=== PATIENT | female | born 2000 | race Caucasian/White ===

== ENCOUNTER 2024-01-14 11:45 | Emergency (ER) | payer SELFPAY ==
[2024-01-14 12:38] VITALS: BP 121/71
--- NOTE | 2024-01-14 12:49 | ED.GENMED ---
History of Present Illness
<Rashi Steinberg MD - Last Filed: 01/14/24 12:50>
General
Chief Complaint: Abdominal Pain
Time Seen by Provider: 01/14/24 12:13
<Marnie Guillen PA-C - Last Filed: 01/14/24 18:05>
General
Source: patient
History of Present Illness
History of Present Illness:
23yo female currently 27 weeks gestation presenting with her friend for evaluation of abdominal pain. Patient is Chinese speaking and history is obtained with the assistance of a phone beauty specialist. Patient started to have left sided abdominal
pain earlier today. The pain was initially severe but has improved and is currently mild. She denies any contractions. She also reports intermittent dysuria, urinary frequency, and green vaginal discharge over the past month or so. She denies any
fevers, vomiting, vaginal bleeding. Patient has received all of her previous care in [facility]. She had an ultrasound at 15 weeks and she was reportedly told that the baby was 'low and slow moving.'
Phy Exam
<Marnie Guillen PA-C - Last Filed: 01/14/24 18:05>
General Physical Exam
General Presentation: well appearing and no apparent distress
General age: appears stated age
General Skin: warm and dry
General Habitus: normal
General Mental: alert
ENT Exam
ENT Exam: normocephalic
Pulmonary Exam
Pulmonary Exam: no respiratory distress
Gastrointestinal Exam
Gastrointestinal Exam: non tender, soft, non distended and other (Gravid abdomen. Abdomen soft, non-tender. FHR 144.)
Genitourinary Exam Female
Exam Female: vaginal discharge and other (Thick green vaginal discharged noted. Cervix otherwise appears normal and is closed. No CMT or adnexal tenderness.)
Neurological Exam
Neurological Exam: alert
D Lo Coma Scale
Eye Opening: Spontaneous
Verbal Response: Oriented
Motor Response: Obeys Commands
GCS Total Score: 15
Skin Exam
Skin Exam: normal color and warm/dry
Psychiatric Exam
Psychiatric Exam: normal mood/affect
Course
<Rashi Steinberg MD - Last Filed: 01/14/24 12:50>
Orders/Labs/Results
Orders:
Orders
01/14/24 12:15
Heart Tones ONCE
01/14/24 12:21
Urinalysis Reflex To Culture Urgent
Date Specimen was Collected: 01/14/24
Time Specimen was Collected: 12:17
Urine Microscopic Reflex Cult Urgent
Urine Culture Urgent
[facility] Source: U
Specimen Description:
Date Specimen was Collected: 01/14/24
Time Specimen was Collected: 12:17
01/14/24 12:35
2nd/3rd Trimester US [US 2nd/3rd Trimester] Urgent
Comment:
Reason For Exam: L sided abd pain
01/14/24 12:49
Complete Blood Count/With Diff Urgent
Comprehensive Metabolic Panel Urgent
01/14/24 13:11
Chlamydia/GC by PCR Urgent
[facility] Source: Endo-Cervical
Specimen Description:
Source:: CERVIX
Date Specimen was Collected: 01/14/24
Time Specimen was Collected: 12:53
Trichomonas - Wet Prep Urgent
[facility] Source: Vagina
Specimen Description:
Date Specimen was Collected: 01/14/24
Time Specimen was Collected: 12:53
01/14/24 13:56
Genital Culture Urgent
[facility] Source: Cervix
Specimen Description:
Date Specimen was Collected: 01/14/24
Time Specimen was Collected: 13:59
01/14/24 14:45
Add On- LAB Urgent
Tests Added?: HIV 4th gen.combo, HCV ab, Hepbsag, Rubella, RPR, ABO ab screen
Abnormal Lab Results
01/14/24 01/14/24
12:21 12:49
RBC 3.64 L 10^6/uL
(4.20-5.40)
Hgb 10.3 L g/dL
(12.0-16.0)
Hct 32.5 L %
(37.0-47.0)
MCHC 31.7 L g/dL
(33.0-37.0)
RDW 18.6 H %
(11.5-14.5)
MPV 10.7 H fL
(7.4-10.4)
Abs Immat Gran (auto) 0.1 H 10^3/uL
(0-0.05)
Absolute Monos (auto) 0.7 H 10^3/uL
(0.1-0.6)
Immature Gran % 0.6 H %
(0-0.5)
Lymphocytes % 17.0 L %
(20.5-51.1)
Carbon Dioxide 21 L mmol/L
(22-30)
Creatinine 0.3 L mg/dL
(0.6-1.0)
Total Protein 6.2 L g/dl
(6.3-8.2)
Leukocyte Esterase Rfl 1+ A
(Negative)
Urine Bacteria (Reflex) Few A
(Negative)
01/14/24 12:49
01/14/24 12:49
Vital Signs
Initial and Last Documented VS:
Initial Vital Signs
Temp Pulse Resp Pulse Ox
98.0 F 78 16 98
01/14/24 11:55 01/14/24 11:55 01/14/24 11:55 01/14/24 11:55
Last Documented Vital Signs
Temp Pulse Resp BP Pulse Ox
98.0 F 72 19 118/68 99
01/14/24 11:55 01/14/24 16:12 01/14/24 16:12 01/14/24 16:12 01/14/24 16:12
<Marnie Guillen PA-C - Last Filed: 01/14/24 18:05>
Orders/Labs/Results
Orders:
Orders
01/14/24 12:15
Heart Tones ONCE
01/14/24 12:21
Urinalysis Reflex To Culture Urgent
Date Specimen was Collected: 01/14/24
Time Specimen was Collected: 12:17
Urine Microscopic Reflex Cult Urgent
Urine Culture Urgent
[facility] Source: U
Specimen Description:
Date Specimen was Collected: 01/14/24
Time Specimen was Collected: 12:17
01/14/24 12:35
2nd/3rd Trimester US [US 2nd/3rd Trimester] Urgent
Comment:
Reason For Exam: L sided abd pain
01/14/24 12:49
Complete Blood Count/With Diff Urgent
Comprehensive Metabolic Panel Urgent
01/14/24 13:11
Chlamydia/GC by PCR Urgent
[facility] Source: Endo-Cervical
Specimen Description:
Source:: CERVIX
Date Specimen was Collected: 01/14/24
Time Specimen was Collected: 12:53
Trichomonas - Wet Prep Urgent
[facility] Source: Vagina
Specimen Description:
Date Specimen was Collected: 01/14/24
Time Specimen was Collected: 12:53
01/14/24 13:56
Genital Culture Urgent
[facility] Source: Cervix
Specimen Description:
Date Specimen was Collected: 01/14/24
Time Specimen was Collected: 13:59
01/14/24 14:45
Add On- LAB Urgent
Tests Added?: HIV 4th gen.combo, HCV ab, Hepbsag, Rubella, RPR, ABO ab screen
Abnormal Lab Results
01/14/24 01/14/24
12:21 12:49
RBC 3.64 L 10^6/uL
(4.20-5.40)
Hgb 10.3 L g/dL
(12.0-16.0)
Hct 32.5 L %
(37.0-47.0)
MCHC 31.7 L g/dL
(33.0-37.0)
RDW 18.6 H %
(11.5-14.5)
MPV 10.7 H fL
(7.4-10.4)
Abs Immat Gran (auto) 0.1 H 10^3/uL
(0-0.05)
Absolute Monos (auto) 0.7 H 10^3/uL
(0.1-0.6)
Immature Gran % 0.6 H %
(0-0.5)
Lymphocytes % 17.0 L %
(20.5-51.1)
Carbon Dioxide 21 L mmol/L
(22-30)
Creatinine 0.3 L mg/dL
(0.6-1.0)
Total Protein 6.2 L g/dl
(6.3-8.2)
Leukocyte Esterase Rfl 1+ A
(Negative)
Urine Bacteria (Reflex) Few A
(Negative)
01/14/24 12:49
01/14/24 12:49
Vital Signs
Initial and Last Documented VS:
Initial Vital Signs
Temp Pulse Resp Pulse Ox
98.0 F 78 16 98
01/14/24 11:55 01/14/24 11:55 01/14/24 11:55 01/14/24 11:55
Last Documented Vital Signs
Temp Pulse Resp BP Pulse Ox
98.0 F 72 19 118/68 99
01/14/24 11:55 01/14/24 16:12 01/14/24 16:12 01/14/24 16:12 01/14/24 16:12
<Marnie Guillen PA-C - Last Filed: 01/14/24 18:05>
MDM/Problems Addressed
Differential Diagnosis Includes:
23yoF here with L sided abd pain that started today. Also having intermittent vaginal discharge and dysuria x 1 month. Currently 27 weeks . No vaginal bleeding or contractions. VSS. She is well appearing in no distress. Abdomen is soft,
non-tender. FHR 144. There is green vaginal discharged noted on speculum exam. No CMT. Differential diagnosis includes but is not limited to: nonspecific abdominal pain, UTI, pyelonephritis, vaginitis, doubt labor
Initial ED plan: Check CBC, CMP, UA, vaginal swabs, and pelvic ultrasound. Will discuss with OBGYN.
<Marnie Guillen PA-C - Last Filed: 01/14/24 18:05>
*Critical Care Note
Total Time (30-74mins, 75-104mins- exclusive of procedures): Not Applicable
<Marnie Guillen PA-C - Last Filed: 01/14/24 18:05>
Update Note
Update Note:
Labs overall unremarkable. UA with 6-10 WBC and a few bacteria. Trichomonas, GC, and chlamydia swabs negative. Ultrasound shows single live viable intrauterine measuring 28 weeks gestation. I discussed case with nurse emergency room, Dr. Orozco.
OBGYN was going to evaluate patient at bedside but patient states she is unable to stay in the ED any longer because her friend/regional intermodal truck driver needs to tow [place] the [place]. I discussed with patient that we have not performed any
monitoring in the ED and we cannot completely r/o any obstetrical emergency without OBGYN assessment. Patient expresses understanding to this but she would still like to leave at this time. Prescription for Keflex sent to pharmacy to cover for
bacteriuria. She has an outpatient appt with OBGYN scheduled on 01/21. Strict ED return precautions discussed. She left in stable condition.
ED Attending Note
<Rashi Steinberg MD - Last Filed: 01/14/24 12:50>
-
Portions of this chart may have been created with voice recognition software.� Occasional wrong word or��sound alike� substitutions may have occurred due to the inherent limitations of voice recognition software.
Discharge Plan
Departure
Patient Disposition: Against Medical Advice
Date of Disposition: 01/14/24
Time of Disposition: 16:09
Discharge Problem:
Abdominal pain during , Bacteriuria during
Instructions: Stomach Pain Later in
Prescriptions:
New
cephalexin 500 mg capsule
500 mg PO Q6H 7 Days Qty: 28 0RF
Referrals:
Sobia Orozco, DO [Active] -
UNKNOWN - PT DOES,NOT KNOW [Family Provider] -
Activity Restrictions/Additional Instructions:
Take antibiotics as prescribed.
Please call OBGYN on Tuesday for follow-up.
Return to the ER with any worsening symptoms/pain, contractions, decreased movement, or vaginal bleeding.
Interventions
Interventions:
*Risk Screen - Suicide Last Done: 01/14/24 11:55
*Neglect/Abuse Screening Last Done: 01/14/24 11:55
*Nursing Disposition Last Done: 01/14/24 16:40
XU-Klndka-Xwstuuuixm Assessment Last Done: 01/14/24 12:24
Discharge Date and Time
Discharge Date/Time: 01/14/24 16:41
Print Language: AMERICAN
[2024-01-14 13:14] LABS: % Basophils 0.2 % (0-2); % Eosinophils 1.5 % (0-6); % Immature Granulocytes 0.6 % (0-0.5); % Monocytes 8.3 % (1.7-9.3); % Neutrophils 72.4 % (42.2-75.2); Absolute Eosinophils 0.1 10^3/uL (0-0.7); Absolute Immature Granulocytes 0.1 10^3/uL (0-0.05); Absolute Lymphocytes 1.5 10^3/uL (1.2-3.4); Absolute Monocytes 0.7 10^3/uL (0.1-0.6); Absolute Neutrophils 6.3 10^3/uL (1.4-6.5); Hematocrit 32.5 % (37.0-47.0); Hemoglobin 10.3 g/dL (12.0-16.0); Mean Corp Hgb Conc. 31.7 g/dL (33.0-37.0); Mean Corpuscular Hgb 28.3 pg (27.0-31.0); Mean Corpuscular Volume 89.3 fL (81.0-99.0); Mean Platelet Volume 10.7 fL (7.4-10.4); Nucleated Red Blood Cells % 0 %; Platelet Count 219 10^3/uL (130-400); Red Blood Cell Count 3.64 10^6/uL (4.20-5.40); Red Cell Dist. Width 18.6 % (11.5-14.5); White Blood Cell Count 8.6 10^3/uL (4.8-10.8)
[2024-01-14 13:19] LABS: ALT (SGPT) 16 U/L (0-35); AST (SGOT) 21 U/L (14-36); Albumin 3.6 g/dl (3.5-5.0); Alkaline Phosphatase 40 U/L (38-126); Blood Urea Nitrogen 9 mg/dl (7-17); Calcium 8.8 mg/dl (8.4-10.2); Carbon Dioxide 21 mmol/L (22-30); Chloride 107 mmol/L (98-107); Glucose 77 mg/dl (70-99); Potassium 3.9 mmol/L (3.5-5.1); Sodium 135 mmol/L (135-145); Total Bilirubin 0.3 mg/dl (0.2-1.3); Total Protein 6.2 g/dl (6.3-8.2); eGFR > 60.00
[2024-01-14 13:24] LABS: Urine Albumin Negative (Neg - Trace); Urine Bilirubin Negative (Negative); Urine Character Clear (Clear); Urine Color Yellow; Urine Glucose Negative (Negative); Urine Ketone Negative (Negative); Urine Leukocyte 1+ (Negative); Urine Nitrite Negative (Negative); Urine Occult Blood Negative (Negative); Urine Urobilinogen Negative (Neg - 1+)
[2024-01-14 14:12] LABS: Urine Red Blood Cell None Seen /HPF (0-2)
[2024-01-14 14:13] LABS: Urine Bacteria Few (Negative)
[2024-01-14 16:12] VITALS: BP 118/68
== END 2024-01-14 16:41 | disposition left against medical advice (07) ==
LOC: EMR 11:45
PROVIDERS: Physician Assistant; EMERGENCY PHYSICIAN Emergency Medicine
DX: R10.9 Unspecified abdominal pain (principal); R82.71 Bacteriuria; Z3A.28 28 weeks gestation of pregnancy; O26.893 Other specified pregnancy related conditions, third trimester
CPT/HCPCS: 99284; 76805; 80053; 81003; 81015; 85025; 87070; 87086; 87210; 87491; 87591